=== PATIENT | female | born 1975 | race Caucasian/White ===

== ENCOUNTER → 2020-12-03 | Outpatient (CLI) | payer BC ==
[2020-12-08 13:10] LABS: HPV 16 Negative (Negative); HPV 18 Negative (Negative); HPV OTHER HR TYPES Negative (Negative)
== END | disposition home or self-care (01) ==
LOC: LAB 10:00 → LAB SHORT 10:00
PROVIDERS: Family Medicine
DX: Z01.419 Encounter for gynecological examination (general) (routine) without abnormal findings (principal)
CPT/HCPCS: 87624; G0123

== ENCOUNTER → 2021-05-07 | Outpatient (CLI) | payer BC ==
[2021-05-07 14:02] LABS: BASOPHILS ABSOLUTE AUTO 0.02 K/mm3 (0.00-0.23); BASOPHILS PERCENT AUTO 0 % (0-2); EOSINOPHILS ABSOLUTE AUTO 0.16 K/mm3 (0.00-0.68); EOSINOPHILS PERCENT AUTO 2 % (0-6); Hematocrit 41.9 % (33.0-51.0); Hemoglobin 14.7 g/dL (11.5-16.0); IMMATURE GRAN ABSOLUTE AUTO 0.06 K/mm3 (0.00-0.10); IMMATURE GRAN PERCENT AUTO 1 % (0-1); LYMPHOCYTES ABSOLUTE AUTO 1.64 K/mm3 (0.84-5.20); LYMPHOCYTES PERCENT AUTO 23 % (21-46); MONOCYTES ABSOLUTE AUTO 0.46 K/mm3 (0.16-1.47); MONOCYTES PERCENT AUTO 7 % (4-13); Mean Corpuscular HGB 30.1 pg (26.0-34.0); Mean Corpuscular HGB Conc 35.1 g/dL (31.5-36.5); Mean Corpuscular Volume 86 fL (80-100); Mean Platelet Volume 9.6 fL (9.1-12.4); NEUTROPHILS ABSOLUTE AUTO 4.77 K/mm3 (1.96-9.15); NEUTROPHILS PERCENT AUTO 67 % (41-73); Platelet Count 277 K/mm3 (150-400); RDW Coefficient Variation 13.3 % (11.7-14.2); RDW Standard Deviation 41.4 fL (35.1-46.3); Red Blood Cell Count 4.88 M/mm3 (3.80-5.20); White Blood Cell Count 7.11 K/mm3 (4.00-11.30)
[2021-05-07 14:15] LABS: Alanine Aminotransfer (ALT/SGP 38 U/L (12-78); Albumin, Blood 3.7 g/dL (3.4-5.0); Albumin/Globulin Ratio 0.9 (0.8-1.8); Alk Phos 97 U/L (40-126); Anion Gap 15 mmol/L (6-16); Aspartate Aminotrans (AST/SGOT 21 U/L (12-37); Bilirubin, Total 0.3 mg/dL (0.1-1.0); Blood Urea Nitrogen 9 mg/dL (8-24); Bun/Creatinine Ratio 12.2 (12.0-20.0); CO2, Blood 23 mmol/L (21-32); Calcium, Blood 8.8 mg/dL (8.5-10.1); Chloride, Blood 104 mmol/L (98-108); Creatinine, Blood 0.74 mg/dL (0.40-1.00); Globulin, Blood 3.9 g/dL (2.2-4.0); Glomerular Filtration Rate >60 (60-); Glucose, Blood 96 mg/dL (70-99); Potassium, Blood 3.6 mmol/L (3.5-5.5); Sodium, Blood 142 mmol/L (136-145); Total Protein, Blood 7.6 g/dL (6.4-8.2); Troponin I <0.017 ng/mL (0.000-0.040)
== END | disposition home or self-care (01) ==
LOC: LAB SHORT 13:57 → LAB 13:57
PROVIDERS: Physician Assistant
DX: R10.9 Unspecified abdominal pain (principal)
CPT/HCPCS: 80053; 83690; 84484; 85025

== ENCOUNTER 2021-09-22 07:27 | Day surgery (SDC) | payer BC ==
[~2021-09-22] VITALS: Ht 175.3 cm; Wt 135.7 kg
[~2021-09-22 07:27] MED LIST: COLLAGEN-VIT C1 EACH PO; ESTARYLLA 0.251 EACH PO; FISH OIL-VIT D1 EACH PO; MULVITA PO; ROPI.25 PO
--- NOTE | 2021-09-22 08:59 | NUR ---
09/22/21 0859 GROVER ACUÑA History, Chart, Medications and Allergies reviewed before start of procedure. 3-LEAD EKG REVIEWED WITH PHYSICIAN PRIOR TO START OF PROCEDURE. MONITOR INTACT WITH CONTINUOUS PULSE OXIMETRY AND INTERMITTENT BP. O2 VIA N/C INTACT THROUGHOUT SEDATION/PROCEDURE. O2 VIA POM INTACT THROUGHOUT SEDATION/PROCEDURE. GENERAL WITH DR. BRASWELL
--- NOTE | 2021-09-22 09:55 | NUR ---
Discharge instructions reviewed with patient. Patient verbalizes understanding. Copy given to patient to take home.
--- NOTE | 2021-09-22 10:05 | NUR ---
Discharged via wheelchair to private car for ride home.
== END 2021-09-22 10:05 | disposition home or self-care (01) ==
LOC: ORSCMMR 07:27 → ORSCSDS 10:30 → ORSCMMR 11:00 → ORD 11:00
DX: R10.13 Epigastric pain (principal); Z12.11 Encounter for screening for malignant neoplasm of colon; E66.01 Morbid (severe) obesity due to excess calories; Z68.42 Body mass index [BMI] 45.0-49.9, adult; G25.81 Restless legs syndrome; I10 Essential (primary) hypertension; Z79.899 Other long term (current) drug therapy
CPT/HCPCS: 43239; G0121; 88305; 88342; A9270; J2704; J7120

== ENCOUNTER 2021-12-30 07:02 | Day surgery (SDC) | payer BC ==
[~2021-12-30] VITALS: Ht 172.7 cm; Wt 133.8 kg
[~2021-12-30 07:02] MED LIST changes: +ALPHA LIPOIC A600 MG PO; +FAMO40 PO; +Flonase 0.05% N16 GM; +OMEGA-3 + VITA200 ML PO; +OMEP20ER PO; +PANT40 PO; +PROBIOTIC1 EA13 PO; +SUCR1 PO
--- NOTE | 2021-12-30 07:52 | NUR ---
Ambulatory in Day Surgery History, Chart, Medications and Allergies reviewed before start of procedure. Lungs clear T/O to Auscultation. Patient States Post-Procedure ride home has been arranged.
--- NOTE | 2021-12-30 09:03 | NUR ---
12/30/21 0903 Aviva Thurston PER SURGEON, NO INTRAOPERATIVE ANTIBIOTICS ORDERED.
--- NOTE | 2021-12-30 10:13 | NUR ---
REPORT FROM FIORELLA MENDOZA RN. PT AXOX4, CAN REPOSITION SELF IN BED. PATIENT HAS FOUR INCISION SITES ON ABDOMEN, ALL COVERED WITH DERMABOND AND THEY ARE ALL CLEAN, DRY AND INTACT. ONE INCISION SITE IS DIRECTLY TO THE RIGHT OF UMBILICUS, ONE IS 6 INCHES ABOVE THE UMBILICUS WITH ANOTHER TWO INCHES TO THE RIGHT, AND ONE ON THE RIGHT ABDOMEN.
--- NOTE | 2021-12-30 11:23 | NUR ---
Discharged via wheelchair to private car for ride home.
== END 2021-12-30 11:25 | disposition home or self-care (01) ==
LOC: ORSCMMR 07:02 → ORD 08:30 → ORSCMMR 08:30
PROVIDERS: Surgery
PROC: 0FT44ZZ Resection of Gallbladder, Percutaneous Endoscopic Approach (ICD-10-PCS; principal; 2021-12-30 08:30)
PROC: BF031ZZ Plain Radiography of Gallbladder and Bile Ducts using Low Osmolar Contrast (ICD-10-PCS; principal; 2021-12-30 08:30)
DX: K80.10 Calculus of gallbladder with chronic cholecystitis without obstruction (principal); K21.9 Gastro-esophageal reflux disease without esophagitis; E66.01 Morbid (severe) obesity due to excess calories; Z68.41 Body mass index [BMI] 40.0-44.9, adult; Z79.899 Other long term (current) drug therapy
CPT/HCPCS: 74300; 88304; A9270; C1729; J1100; J1885; J2250; J2405; J2704; J2765; J3010; J7120

== ENCOUNTER 2023-08-31 20:29 | Emergency (ER) | payer BC ==
[~2023-08-31] VITALS: Ht 172.7 cm; Wt 126.1 kg
[2023-08-31 21:47] VITALS: BP 178/89
== END 2023-09-01 03:11 | disposition left against medical advice (07) ==
LOC: ER 20:29
DX: S51.852A Open bite of left forearm, initial encounter (principal); W54.0XXA Bitten by dog, initial encounter; Z53.21 Procedure and treatment not carried out due to patient leaving prior to being seen by health care provider
CPT/HCPCS: 99281